=== PATIENT | female | born 1995 | race African-American/Black ===

== ENCOUNTER 2016-05-27 18:26 | Emergency (ER) | payer SELFPAY ==
[~2016-05-27] VITALS: Ht 157.5 cm; Wt 58.0 kg
[~2016-05-27 18:26] MED LIST: CAMILA0.35 MG PO; KEFLEX500 MG PO; MOTRIN800 MG PO
[2016-05-27] MEDS ORDERED: MOTRIN600 MG PO (20:13)
[2016-05-27 20:49] VITALS: BP 131/79
== END 2016-05-27 22:15 | disposition home or self-care (01) ==
LOC: EME 18:26
DX: S09.8XXA Other specified injuries of head, initial encounter (principal); S00.531A Contusion of lip, initial encounter; S60.211A Contusion of right wrist, initial encounter; S90.32XA Contusion of left foot, initial encounter; M54.2 Cervicalgia; Y04.2XXA Assault by strike against or bumped into by another person, initial encounter; F17.200 Nicotine dependence, unspecified, uncomplicated
CPT/HCPCS: 73110; 73630; 84702; 99281; 99284

== ENCOUNTER 2016-09-02 16:51 | Emergency (ER) | payer OTHER ==
[~2016-09-02] VITALS: Ht 165.1 cm; Wt 59.5 kg
[~2016-09-02 16:51] MED LIST changes: +MOTRIN600 MG PO
[2016-09-02 16:55] VITALS: BP 119/74
[2016-09-02 17:47] LABS: ADD MIUA? YES; BILIRUBIN NEGATIVE; BLOOD NEGATIVE; COLOR YELLOW ((YELLOW)); GLUCOSE (STRIP) NEGATIVE; KETONES NEGATIVE; LEUKOCYTES NEGATIVE; NITRITE NEGATIVE; PROTEIN (STRIP) NEGATIVE; SPECIFIC GRAVITY 1.014 (1.000-1.030); UROBILINOGEN 0.2 MG/DL (0.2-1.0)
[2016-09-02 17:57] LABS: BACTERIA RARE /HPF; EPITHELIAL CELLS 2+ /HPF; MUCUS TRACE /LPF; RED BLOOD CELLS 0-5 /HPF (0-5); WHITE BLOOD CELLS 0-5 /HPF (0-5)
[2016-09-02 18:11] LABS: INTERNAL CONTROL VALID? YES
[2016-09-02] MEDS ORDERED: PRENATAL VITAM1 EA11 PO (18:13)
[2016-09-02] MEDS ORDERED: ZOFRAN ODT4 MG PO (18:13)
== END 2016-09-02 18:30 | disposition home or self-care (01) ==
LOC: EME 16:51
PROVIDERS: Nurse Practitioner Family
DX: Z32.01 Encounter for pregnancy test, result positive (principal)
CPT/HCPCS: 81003; 84703; 99281; 99283

== ENCOUNTER 2017-05-06 20:14 | Inpatient (IN) | payer OTHER ==
[~2017-05-06] VITALS: Ht 165.1 cm; Wt 77.0 kg
[~2017-05-06 20:14] MED LIST changes: +PRENATAL VITAM1 EA11 PO; +ZOFRAN ODT4 MG PO
[2017-05-06 20:58] LABS: EOSINOPHIL (%) 0.6 % (0-5); EOSINOPHIL COUNT 0.1 K/uL (0-0.3); HEMATOCRIT 34.6 % (36.0-46.0); IMMATURE GRANULOCYTE (%) 0.5 % (0.0-0.7); IMMATURE GRANULOCYTE COUNT 0.1 K/uL; INSTRUMENT ABS NEUTROPHIL CT 11.5 K/uL; LYMPHOCYTE COUNT 2.2 K/uL (1.0-2.8); MCH 31.4 PG (29.0-34.0); MCHC 33.8 G/DL (30.0-36.0); MCV 92.8 FL (83-99); MEAN PLAT.VOLUME 10.1 uM^3 (9.5-12.4); MONOCYTE (%) 8.3 % (3-12); MONOCYTE COUNT 1.3 K/uL (0-0.8); NEUTROPHIL (%) 75.6 % (45-76); NEUTROPHIL COUNT 11.5 K/uL (1.8-6.4); PLATELET COUNT 201 K/uL (156-360); RBC DIS.WIDTH-CV 13.3 % (11.8-14.6); RBC DIS.WIDTH-SD 44.9 % (39-53); RED BLOOD COUNT 3.73 M/uL (3.80-5.20); WHITE BLOOD COUNT 15.2 K/uL (4.1-10.2)
[2017-05-06 21:13] LABS: Estimated Average Glucose 111 mg/dL (70-123); HEMOGLOBIN A1c (GLYCOHEMOGLOB) 5.5 % HGB (Below 5.7)
[2017-05-06 21:14] LABS: ANION GAP 11 MEQ/L (2-14); CHLORIDE 103 MEQ/L (99-109); POTASSIUM 3.7 MEQ/L (3.7-5.4); SAMPLE HEMOLYSIS CHECK 0; SAMPLE ICTERIC CHECK 0; SAMPLE LIPEMIA CHECK 0; SODIUM 137 MEQ/L (136-147); TOTAL BILIRUBIN 0.6 MG/DL (0.0-1.0)
[2017-05-06 21:14] LABS: AMPHETAMINE NEGATIVE (500 ng/mL); COCAINE NEGATIVE (150 ng/mL); METHAMPHETAMINE NEGATIVE (500 ng/mL); OPIATES (MORPHINE) NEGATIVE (100 ng/mL); PHENCYCLIDINE NEGATIVE (25 ng/mL); THC CANNABINOIDS PRESUMPTIVE POSITIVE (50 ng/mL)
[2017-05-06 21:15] LABS: BARBITURATES NEGATIVE (200 ng/mL); BENZODIAZEPINES NEGATIVE (150 ng/mL); INTERNAL CONTROLS VALID? YES; METHADONE NEGATIVE (200 ng/mL); OXYCODONE NEGATIVE (100 ng/mL); PROPOXYPHENE NEGATIVE (300 ng/mL); TRICYCLIC ANTIDEPRESSANTS NEGATIVE (300 ng/mL)
[2017-05-06 21:16] LABS: ADD MEDTOX COMMENT Y
[2017-05-06 21:20] LABS: ALKALINE PHOSPHATASE 78 IU/L (3-129); GFR ESTIMATE (CALCULATED) > 59 mL/min/; GLUCOSE 77 mg/dL (70-99); UREA NITROGEN (BUN) 9 mg/dL (9-23)
[2017-05-06 21:23] VITALS: BP 125/77
[2017-05-06 21:45] VITALS: BP 128/84
[2017-05-06 21:53] LABS: DRSB INTERNAL CONTROL PASS; PROBE CHECK PASS; SPECIMEN PROCESSING CONTROL PASS
[2017-05-06 22:00] VITALS: BP 139/79
[2017-05-06 22:15] VITALS: BP 125/77
[2017-05-06 22:30] VITALS: BP 130/86
[2017-05-06 23:32] VITALS: BP 126/76
[2017-05-07 00:40] VITALS: BP 114/62
[2017-05-07 07:42] VITALS: BP 110/67
[2017-05-07 09:40] LABS: BASOPHIL COUNT 0.1 K/uL (0-0.1); EOSINOPHIL COUNT 0.1 K/uL (0-0.3); HEMATOCRIT 30.6 % (36.0-46.0); IMMATURE GRANULOCYTE (%) 0.6 % (0.0-0.7); IMMATURE GRANULOCYTE COUNT 0.1 K/uL; INSTRUMENT ABS NEUTROPHIL CT 9.7 K/uL; MCH 30.8 PG (29.0-34.0); MCHC 33.7 G/DL (30.0-36.0); MCV 91.6 FL (83-99); MEAN PLAT.VOLUME 10.6 uM^3 (9.5-12.4); MONOCYTE (%) 9.5 % (3-12); MONOCYTE COUNT 1.4 K/uL (0-0.8); NEUTROPHIL (%) 67.8 % (45-76); NEUTROPHIL COUNT 9.7 K/uL (1.8-6.4); PLATELET COUNT 186 K/uL (156-360); RBC DIS.WIDTH-CV 13.2 % (11.8-14.6); RBC DIS.WIDTH-SD 43.8 % (39-53); RED BLOOD COUNT 3.34 M/uL (3.80-5.20); WHITE BLOOD COUNT 14.4 K/uL (4.1-10.2)
[2017-05-07 11:11] LABS: TREPONEMA ANTIBODY NEGATIVE (NEGATIVE)
[2017-05-07 14:47] VITALS: BP 100/61
[2017-05-07 23:00] VITALS: BP 126/69
[2017-05-08 08:07] VITALS: BP 117/69
== END 2017-05-08 15:25 | disposition home or self-care (01) | DRG 775 ==
LOC: LDRP-OP → 2WEST 20:15 → LDRP-OP 06-04 08:55
PROVIDERS: Advanced Practice Midwife
DX: O70.0 First degree perineal laceration during delivery (principal); E66.3 Overweight; Z3A.40 40 weeks gestation of pregnancy; Z37.0 Single live birth; Z68.25 Body mass index [BMI] 25.0-25.9, adult
CPT/HCPCS: 80053; 83036; 84999; 85025; 86780; 87653; C1755; J7120